=== PATIENT | female | born 1985 | race Caucasian/White ===

== ENCOUNTER 2020-01-03 20:05 | Inpatient (IN) | payer MEDICAID ==
[~2020-01-03] VITALS: Ht 175.3 cm; Wt 70.3 kg
--- NOTE | 2020-01-03 20:10 | NUR ---
Patient brought in by RA 80 for overdose, Appears alert and oriented, appears drowsy but easily arouses, states she took Klonopin with alcohol around 6 pm because she found out she is , vitals are stable (126/77, 100% on room air, 82 heart rate, 17 respirations), piping supervisor called for one to one sitter because patient states that she wishes she would go to sleep and not wake up. piping supervisor unable to provide a sitter at this time.
[2020-01-03] MEDS ORDERED: FLUO40CA8 PO (20:16)
[2020-01-03] MEDS ORDERED: CLON1TAB12 PO (20:16)
[2020-01-03 20:38] LABS: BASOPHILS # (AUTO) 0.1 K/uL (0.0-8.0); BASOPHILS % (AUTO) 0.6 % (0.0-2.0); EOSINOPHILS # (AUTO) 0.3 K/uL (0.0-0.7); EOSINOPHILS % (AUTO) 2.8 % (0.0-7.0); HEMATOCRIT 36.1 % (31.2-41.9); HEMOGLOBIN 12.4 g/dL (10.9-14.3); LYMPHOCYTES # (AUTO) 2.3 K/uL (20.0-40.0); MEAN CORPUSCULAR HEMOGLOBIN 32.4 uug (24.7-32.8); MEAN CORPUSCULAR HGB CONC 35 g/dL (32.3-35.6); MONOCYTES # (AUTO) 0.8 K/uL (2.0-10.0); MONOCYTES % (AUTO) 7.7 % (0.0-11.0); NEUTROPHILS # (AUTO) 6.6 K/uL (1.8-8.9); NEUTROPHILS % (AUTO) 65.9 % (38.5-71.5); PLATELET COUNT (AUTO) 351 K/uL (179-408); RED BLOOD CELL COUNT(AUTO) 3.84 MIL/uL (3.63-4.92)
--- NOTE | 2020-01-03 20:42 | NUR ---
16 gauge IV noted in left wrist
[2020-01-03 20:43] LABS: CARBON DIOXIDE 25 mmol/L (21-32); CHLORIDE 106 mmol/L (98-107); CREATININE 0.6 mg/dL (0.6-1.3); GLUCOSE 90 mg/dL (74-106); POTASSIUM 3.5 mmol/L (3.5-5.1); UREA NITROGEN, BLOOD 11 mg/dL (7-18)
[2020-01-03 20:44] LABS: ETHANOL 161 MG/DL (0-0)
[2020-01-03] MEDS ORDERED: IV NS 1000 ML 1,000 ML IV ONE (20:45)
[2020-01-03 20:49] LABS: ACETAMINOPHEN < 2.0 ug/mL (10-30); ALANINE AMINOTRANSFERASE 21 U/L (14-59); ALKALINE PHOSPHATASE 43 U/L (50-136); ASPARTATE AMINOTRANSFERASE 14 U/L (15-37); BILIRUBIN,DIRECT 0.1 mg/dL (0.0-0.2); BILIRUBIN,TOTAL 0.1 mg/dL (0.2-1.0); CREATINE KINASE, TOTAL 35 U/L (26-192); TOTAL PROTEIN, SERUM 6.4 g/dL (6.4-8.2)
[2020-01-03 20:56] LABS: THYROID STIMULATING HORMONE 0.985 mIU/mL (0.358-3.740)
--- NOTE | 2020-01-03 21:04 | NUR ---
Patient noted resting at this time, all needs met, IV fluids in process
--- NOTE | 2020-01-03 21:45 | NUR ---
Charlotte from crisis team returned call stating she will come to evaluate this patient
--- NOTE | 2020-01-03 22:20 | NUR ---
nutrition technician noted in the room at this time
--- NOTE | 2020-01-03 22:24 | NUR ---
Patient assisted to restroom at this time, urine sample collected and sent to lab at this time
[2020-01-03 22:54] LABS: *BILIRUBIN,URIN NEGATIVE (NEGATIVE); *BLOOD, URINE NEGATIVE (NEGATIVE); *CLARITY,URINE CLEAR (CLEAR); *COLOR,URINE LIGHT YELLOW (YELLOW); *KETONES,URINE NEGATIVE (NEGATIVE); *UROBILINOGEN,URINE 0.2 E.U./dl (NORMAL); LEUKOCYTE ESTERASE ,URINE NEGATIVE (NEGATIVE); NITRITE, URINE NEGATIVE (NEGATIVE); PH,URINE 5.5 (5.0-8.0); UGLUCOSE NEGATIVE (NEGATIVE)
[2020-01-03 23:04] LABS: *AMPHETAMINE, URINE NEGATIVE (NEGATIVE); *BARBITURATE, URINE NEGATIVE (NEGATIVE); *CANNABINOID, URINE NEGATIVE (NEGATIVE); *COCCAINE, URINE NEGATIVE (NEGATIVE); *OPIATE, URINE NEGATIVE (NEGATIVE); *PHENCYCLIDINE SCREEN,URINE NEGATIVE (NEGATIVE)
--- NOTE | 2020-01-04 00:20 | NUR ---
[facility] ETA 30min
--- NOTE | 2020-01-04 00:20 | NUR ---
Charlotte from crisis team states she will arrive to ER department in 30 min
[2020-01-04] MEDS ORDERED: NALOXONE HCL 0.4 MG/ML AMPUL ONE ×2 (01:14→01:21)
[2020-01-04] MEDS ORDERED: NALOXONE 2 MG/2 ML SYRINGE ONE (01:16)
--- NOTE | 2020-01-04 02:54 | NUR ---
Report given to Iggy PARKINSON at this time
[2020-01-04] MEDS ORDERED: ACETAMINOPHEN 325 MG TABLET PO PRN (03:45)
[2020-01-04] MEDS ORDERED: ONDANSETRON 4 MG/2 ML VIAL IV PRN (03:45)
[2020-01-04] MEDS ORDERED: Z GUARD REMEDY PASTE 57 GM TUBE TOP PRN (03:45)
[2020-01-04] MEDS ORDERED: MAGNESIUM HYDROXIDE 30 ML LIQUID UDC PO PRN (03:45)
[2020-01-04 04:00] VITALS: BP 95/44
--- NOTE | 2020-01-04 04:00 | NUR ---
Pt. admitted to [facility] , under care of Dr. Ortiz Belongs List completed and all belongings sent with patient, no signs of distress noted
[2020-01-04] MEDS: IV NS 1000 ML 1,000 ML IV SCH ×2 (04:14→14:00)
--- NOTE | 2020-01-04 05:05 | NUR ---
ADMITTED TO ROOM 311; SITTER PROVIDED 1:1; NO SI AT THIS TIME; IVF STARTED; SR ON TELE; VSS. continue to monitor; continue plan of care
--- NOTE | 2020-01-04 08:00 | NUR ---
Sitter at bedside 1:1 for safety. Pt denies any complain of sob. Call light is within reach.
--- NOTE | 2020-01-04 08:30 | NUR ---
Pt more awake and alert x 4. pt denies any SI.
[2020-01-04] MEDS ORDERED: LORAZEPAM 2 MG/1 ML VIAL IV PRN (09:45)
[2020-01-04 14:02] VITALS: BP 106/60
--- NOTE | 2020-01-04 15:00 | NUR ---
Ambulated pt around hallway x 5. Pt ambulates with good gait and balance. No dizziness noted. Dr oconnor to d/c pt home.
[2020-01-04 15:39] VITALS: BP 106/61
--- NOTE | 2020-01-04 16:34 | NUR ---
Pt discharge home. Pt already has psychiatrist appt tomorrow set. Discharge instructions given to pt. pt verbalized understanding. IV d/c. NO SOB Noted upon discharge.
== END 2020-01-04 16:30 | disposition home or self-care (01) | DRG 817 ==
LOC: ER 20:09 → TELE3 01-04 03:00 → EDBD 01-04 03:00 → TELE-TD3 01-04 04:54
PROVIDERS: ADMIT Internal Medicine; ATTEND Internal Medicine
DX: T42.4X2A Poisoning by benzodiazepines, intentional self-harm, initial encounter (principal); R94.31 Abnormal electrocardiogram [ECG] [EKG]; Z91.5 Personal history of self-harm; Y92.009 Unspecified place in unspecified non-institutional (private) residence as the place of occurrence of the external cause; F60.3 Borderline personality disorder; F41.9 Anxiety disorder, unspecified; F10.129 Alcohol abuse with intoxication, unspecified; Y90.6 Blood alcohol level of 120-199 mg/100 ml
CPT/HCPCS: 36415; 76856; 80307; 80329; 84443; 85025; 93005; A4663; G0378; G0480; G0480-TC; J2310; J7030